=== PATIENT | female | born 1965 | race Caucasian/White ===

== ENCOUNTER 2019-11-17 11:41 | Emergency (ER) | payer MEDICAID ==
[~2019-11-17] VITALS: Ht 160 cm; Wt 59.0 kg
[2019-11-17] MEDS ORDERED: TRAZ-251 PO (12:10)
[2019-11-17] MEDS ORDERED: CALC1TAB99 PO (12:10)
[2019-11-17] MEDS ORDERED: VITAMIN (12:10)
[2019-11-17] MEDS ORDERED: FERR325T6 PO (12:10)
[2019-11-17] MEDS ORDERED: TAMO20TA4 PO (12:10)
[2019-11-17 13:25] LABS: CLARITY URINE CLEAR (CLEAR); COLOR URINE YELLOW (YELLOW); KETONES URINE NEGATIVE (NEGATIVE); LEUKOCYTE ESTERASE URINE NEGATIVE (NEGATIVE); NITRITE URINE NEGATIVE (NEGATIVE); OCCULT BLOOD URINE 1+ (NEGATIVE); PH URINE 7.5 (4.5-8.0); PROTEIN URINE NEGATIVE (NEGATIVE); SPECIFIC GRAVITY URINE 1.005 (1.005-1.030); UROBILINOGEN URINE 0.2 E.U./dL (0.2-1.0)
[2019-11-17 14:03] LABS: CHLORIDE 107 mEq/L (98-107)
[2019-11-17 14:15] LABS: BASOPHILS % 0.6 % (0.0-2.0); EOSINOPHILS % 1.1 % (0.0-5.0); HEMATOCRIT. 37.6 % (36.0-48.0); MEAN CORPUSCULAR HEMOGLOBIN 31.2 pg (28.0-32.0); MEAN CORPUSCULAR VOLUME 90.7 fL (81.0-99.0); MEAN PLATELET VOLUME 8.2 fl (7.4-10.4); NEUTROPHILS % 58.3 % (40.0-76.0); PLATELET 186 x1000/uL (130-400); RED BLOOD CELL COUNT 4.15 mill/uL (4.2-5.4); RED CELL DISTRIBUTION WIDTH 12.4 % (11.6-14.6)
[2019-11-17 16:17] VITALS: BP 115/74
== END 2019-11-17 15:50 | disposition home or self-care (01) ==
LOC: ER 11:41
DX: K92.2 Gastrointestinal hemorrhage, unspecified (principal); Z90.710 Acquired absence of both cervix and uterus; Z88.1 Allergy status to other antibiotic agents; Z88.0 Allergy status to penicillin; Z79.899 Other long term (current) drug therapy
CPT/HCPCS: 36415; 80053; 81003; 85025; 99283